=== PATIENT | male | born 1930 | race Caucasian/White ===

== ENCOUNTER 2016-12-09 10:19 | Inpatient (IN) | payer MEDICARE ==
[2016-12-09] MEDS ORDERED: ACETAMINOPHEN 325 MG TABLET PO ONE (10:24)
--- NOTE | 2016-12-09 10:30 | ER Document Report ---
ED Respiratory Problem - General Stated Complaint: DIFFICULTY BREATHING Time Seen by Provider: 12/09/16 10:23 Mode of Arrival: Stretcher Information source: Patient, Emergency Med Personnel - HPI Patient complains to provider of: Cough, Short of breath Onset: This morning Duration: Worse/persistent Context: Hx COPD, Recent surgery Short of Breath: Severe Chest pain/discomfort: Tightness Cough: Productive Sputum amount: Small Sputum color: Yellow Sputum consistency: Mucoid Associated symptoms: Congestion, Cough, Difficulty breathing, Fever, Short of breath, Wheezing Similar symptoms previously: Yes Recently seen / treated by doctor: Yes Notes: Patient is an 86-year-old male presenting to the emergency room via EMS for shortness of breath with fever and chills that started this morning, patient had a PEG tube placed at [facility] last week, he has been doing well since, he has a history of COPD, his cough is wet but nonproductive, when EMS arrived his pulse ox was in the mid 80 range, and he is on 4L oxygen 24/7 at home - Related Data Allergies/Adverse Reactions: No Known Allergies Allergy (Unverified 12/09/16 11:39) Past Medical History - General Information source: Patient - Social History Smoking Status: Unknown if Ever Smoked Family History: Reviewed & Not Pertinent Review of Systems - Review of Systems Constitutional: Fever EENT: No symptoms reported Cardiovascular: No symptoms reported Respiratory: See HPI Gastrointestinal: No symptoms reported Genitourinary: No symptoms reported Male Genitourinary: No symptoms reported Musculoskeletal: No symptoms reported Skin: No symptoms reported Hematologic/Lymphatic: No symptoms reported Neurological/Psychological: No symptoms reported -: Yes All other systems reviewed and negative Physical Exam - Vital signs Vitals: Resp BP Pulse Ox 29 H 131/73 H 93 12/09/16 11:02 12/09/16 11:02 12/09/16 11:02 Interpretation: Tachycardic, Tachypneic - General General appearance: Alert In distress: Mild - HEENT Head: Normocephalic, Atraumatic Eyes: Normal Conjunctiva: Normal Extraocular movements intact: Yes Eyelashes: Normal Pupils: PERRL Mucous membranes: Dry - Respiratory Respiratory status: Respiratory distress, Labored, Tachypnea Chest status: Nontender Breath sounds: Nonproductive cough, Rhonchi Chest palpation: Normal - Cardiovascular Rhythm: Regular Heart sounds: Normal auscultation Murmur: No - Abdominal Inspection: Other - Recently placed PEG tube in place Distension: No distension Bowel sounds: Normal Tenderness: Nontender Organomegaly: No organomegaly - Back Back: Normal, Nontender - Extremities General upper extremity: Normal inspection, Nontender, Normal color, Normal ROM , Normal temperature General lower extremity: Normal inspection, Nontender, Normal color, Normal ROM , Normal temperature, Normal weight bearing. No: Gilles's sign - Neurological Neuro grossly intact: Yes Cognition: Normal Orientation: AAOx4 Gilbert Coma Scale Eye Opening: Spontaneous Onel Coma Scale Verbal: Oriented Onel Coma Scale Motor: Obeys Commands Onel Coma Scale Total: 15 Speech: Normal Motor strength normal: LUE, RUE, LLE, RLE Sensory: Normal - Psychological Associated symptoms: Normal affect, Normal mood - Skin Skin Temperature: Warm Skin Moisture: Dry Skin Color: Normal Course - Re-evaluation Re-evalutation: 12/09/16 12:11 Patient doing much better at this point time, nasal cannula it was reduced to 2- 1/2 L, he seems to be tolerating this well, he still is attempting to cough up some phlegm, chest x-ray is consistent with bibasilar opacities/pneumonia, he will be started on antibiotics, he was discussed with the hospitalist service who agrees to admit for further evaluation and treatment - Vital Signs Vital signs: Temp Pulse Resp BP Pulse Ox 101.9 F H 29 H 131/73 H 93 12/09/16 11:15 12/09/16 11:02 12/09/16 11:02 12/09/16 11:02 - Laboratory Result Diagrams: 12/09/16 10:45 12/09/16 10:45 Laboratory results interpreted by me: 12/09/16 12/09/16 12/09/16 10:38 10:45 10:45 Hgb 13.1 L RDW 14.2 H Band Neutrophils % 10 H Lymphocytes % (Manual) 3 L Abs Lymphs (Manual) 0.2 L VBG HCO3 Sodium 136.7 L Chloride 95 L Est GFR (Non-Af Amer) 59 L Glucose 128 H POC Glucose 130 H Lactic Acid AST 11 L ALT 15 L 12/09/16 12/09/16 10:45 10:45 Hgb RDW Band Neutrophils % Lymphocytes % (Manual) Abs Lymphs (Manual) VBG HCO3 32.3 H Sodium Chloride Est GFR (Non-Af Amer) Glucose POC Glucose Lactic Acid 2.3 H AST ALT - Diagnostic Test Radiology reviewed: Image reviewed, Reports reviewed - EKG Interpretation by Me EKG shows normal: Sinus rhythm Rate: Tachycardia [place]/QRS: LAHB/LAFB Discharge - Discharge Clinical Impression: COPD exacerbation Pneumonia Qualifiers: Pneumonia type: due to unspecified organism Laterality: bilateral Lung location : lower lobe of lung Qualified Code(s): J18.9 - Pneumonia, unspecified organism Condition: Fair Disposition: ADMITTED INPATIENT Admitting Provider: Hospitalist Unit Admitted: IMCU
[2016-12-09] MEDS ORDERED: IPRATROPIUM/ALBUTEROL 0.5-2.5 MG/3 ML AMPUL NEB ONE (10:36)
[2016-12-09] MEDS ORDERED: ALBUTEROL SULFATE 0.083% NEB 2.5 MG/3 ML AMPUL NEB ONE (10:36)
[2016-12-09 11:04] LABS: VENOUS BLOOD BASE EXCESS 5.6 mmol/L; VENOUS BLOOD HCO3 32.3 mmol/L (20-32); VENOUS BLOOD PCO2 55.4 mmHg (35-63); VENOUS BLOOD PH 7.38 (7.30-7.42)
[2016-12-09] MEDS ORDERED: ACETAMINOPHEN 650 MG SUPP.RECT PR ONE (11:06)
[2016-12-09 11:08] LABS: PROTHROMBIN TIME 12.6 SEC (11.4-15.4)
[2016-12-09 11:15] LABS: ALANINE AMINOTRANSFERASE 15 U/L (21-72); ALBUMIN 4.2 g/dL (3.5-5.0); ALKALINE PHOSPHATASE 81 U/L (38-126); ANION GAP 14 (5-19); ASPARTATE AMINO TRANSFERASE 11 U/L (17-59); BILIRUBIN,DIRECT 0.4 mg/dL (0.0-0.4); BILIRUBIN,TOTAL 0.9 mg/dL (0.2-1.3); BLOOD UREA NITROGEN 20 mg/dL (7-20); CALCIUM 9.8 mg/dL (8.4-10.2); CARBON DIOXIDE 28 mmol/L (22-30); CHLORIDE 95 mmol/L (98-107); CREATININE RESULT 1.18 mg/dL (0.52-1.25); GLUCOSE 128 mg/dL (75-110); POTASSIUM 4.4 mmol/L (3.6-5.0); SODIUM 136.7 mmol/L (137-145); TOTAL PROTEIN 6.6 g/dL (6.3-8.2)
[2016-12-09 11:39] LABS: HEMATOCRIT 39.2 % (37.9-51.0); HEMOGLOBIN 13.1 g/dL (13.5-17.0); HGB HCT DIFFERENCE 0.1; MEAN CORPUSCULAR HEMOGLOBIN 29.3 pg (27.0-33.4); MEAN CORPUSCULAR HGB CONC 33.4 g/dL (32.0-36.0); MEAN CORPUSCULAR VOLUME 88 fl (80-97); RED BLOOD COUNT 4.48 10^6/uL (4.35-5.55); RED CELL DISTRIBUTION WIDTH 14.2 % (11.5-14.0); WHITE BLOOD COUNT 7.4 10^3/uL (4.0-10.5)
[2016-12-09 11:43] LABS: BAND NEUTROPHILS % (MANUAL) 10 % (3-5); BASOPHILS % (MANUAL) 1 % (0-2); EOSINOPHILS % (MANUAL) 1 % (0-6); LYMPHOCYTES % (MANUAL) 3 % (13-45); TOTAL CELLS COUNTED 100
[2016-12-09 11:45] LABS: HYPOCHROMASIA SLIGHT; OVALOCYTES SLIGHT; PLATELET CLUMPS PRESENT; POIKILOCYTOSIS SLIGHT
[2016-12-09 11:55] LABS: APPEARANCE,URINE CLEAR; BILIRUBIN,URINE NEGATIVE (NEGATIVE); GLUCOSE, URINE NEGATIVE (NEGATIVE); KETONES,URINE NEGATIVE (NEGATIVE); LEUKOCYTE ESTERASE,URINE NEGATIVE (NEGATIVE); NITRITE,URINE NEGATIVE (NEGATIVE); PROTEIN,URINE NEGATIVE (NEGATIVE); URINE SPECIFIC GRAVITY 1.004; UROBILINOGEN,URINE NEGATIVE mg/dL (<2.0)
--- NOTE | 2016-12-09 12:00 | RADIOLOGY REPORT (SQ) ---
EXAM DESCRIPTION: ACUTE ABDOMEN SERIES COMPLETED DATE/TIME: 12/09/2016 11:51 am REASON FOR STUDY: recent PEG COMPARISON: None. NUMBER OF VIEWS: Three views. TECHNIQUE: Frontal chest, supine abdomen and upright/decubitus abdomen radiographic images acquired. LIMITATIONS: None. FINDINGS: CHEST: Minimal basilar opacities. No pneumothorax. FREE AIR: None. No abnormal gas collections. BOWEL GAS PATTERN: Nonobstructive pattern. No dilated loops or air fluid levels. CALCIFICATIONS: No suspicious calcifications. HARDWARE: None in the abdomen. SOFT TISSUES: No gross mass or suggestion of organomegaly. BONES: No acute fracture. No worrisome bone lesions. OTHER: No other significant finding. IMPRESSION: NO RADIOGRAPHIC EVIDENCE FOR ACUTE ABDOMINAL DISEASE. Minimal basilar opacities in the lungs. TECHNICAL DOCUMENTATION: JOB ID: [id number] [employer]- All Rights Reserved
[2016-12-09] MEDS ORDERED: CEFTRIAXONE INJ 1000 MG VIAL IV ONE (12:09)
[2016-12-09] MEDS ORDERED: ONDANSETRON 4 MG TAB.RAPDIS PO PRN (12:39)
--- NOTE | 2016-12-09 14:33 | RADIOLOGY REPORT (SQ) ---
EXAM DESCRIPTION: CT CHEST WITHOUT COMPLETED DATE/TIME: 12/09/2016 1:37 pm REASON FOR STUDY: Aspiration Pneumonia COMPARISON: None. TECHNIQUE: CT scan performed of the chest without intravenous contrast. Images reviewed with lung, soft tissue and bone windows. Reconstructed coronal and sagittal MPR images reviewed. All images st ored on PACS. All CT scanners at this facility use dose modulation, iterative reconstruction, and/or weight based d osing when appropriate to reduce radiation dose to as low as reasonably achievable (ALARA). [facility]: Dose Right [facility]: CareDose [facility]: Dose Right [facility]: Teradose 4D [facility]: [employer] RADIATION DOSE: Up-to-date CT equipment and radiation dose reduction techniques were employed. CTDIv ol: 8.8 mGy. DLP: 374 mGy-cm. mGy. LIMITATIONS: No technical limitations. FINDINGS: LUNGS AND PLEURA: Centrilobular emphysema. Pleural thickening along the left major fissur e. Subsegmental airspace disease associated with honeycombing in the left lower lobe. No evidence o f cavitation. No effusions. HILAR AND MEDIASTINAL STRUCTURES: No identified masses or abnormal nodes. No obvious aneurysm. HEART AND VASCULAR STRUCTURES: No aneurysm. No pericardial effusion. UPPER ABDOMEN: Hiatal hernia. THYROID AND OTHER SOFT TISSUES: No masses. No adenopathy. BONES: No significant finding. HARDWARE: None in the chest. OTHER: No other significant findings. IMPRESSION: COPD. Pulmonary fibrosis with superimposed infection or aspiration left lower lobe. TECHNICAL DOCUMENTATION: JOB ID: [id number] Quality ID # [id number]: Final reports with documentation of one or more dose reduction techniques (e.g., Au tomated exposure control, adjustment of the mA and/or kV according to patient size, use of iterative reconstruction technique) 2010 [employer]- All Rights Reserved
[2016-12-09] MEDS ORDERED: NORMAL SALINE 1000 ML 1,000 ML IV ONE (14:57)
--- NOTE | 2016-12-09 15:05 | PDOC H&P ---
History of Present Illness Admission Date/PCP: 12/09/16 12:21 Patient complains of: Shortness of Breath History of Present Illness: RHIANNA PRATER is a 86 year old male presents with shortness of breath. Pt states that he receives PEG tube feeds and last night noted that he was belching and coughing. Pt states that he could taste the liquid supplement last night. Pt states that his last feed was at 8 pm and he went to bed at 11pm. Pt states that he sleeps with one pillow at night. Pt states that he woke up at 4-430 am short of breath. Pt states that he has been having hard time breathing. states that he had his PEG tube placed last Saturday. ER states that pt was sating in the Low 80s on 4 liters. The ER doctor gave breathing treatment and rocephin. At time of my encounter to was on 2 liters nasal canula. Past Medical History Pulmonary Medical History: Reports: Chronic Obstructive Pulmonary Disease (COPD) GI Medical History: Reports: Other GI History Note: Dysphagia Past Surgical History Past Surgical History: Reports: Cholecystectomy, Other - PEG Tube placement. Social History Smoking Status: Former Smoker - Advance Directive Resuscitation Status: Full Code Family History Family History: Reviewed & Not Pertinent Parental Family History Reviewed: Yes Children Family History Reviewed: Yes Sibling(s) Family History Reviewed.: Yes Medication/Allergy Home Medications: Albuterol Sulfate [Ventolin 0.083% Neb 2.5 mg/3 ml Ampul] 1 vial NEB RTQ12 12/09 Albuterol Sulfate [Ventolin Hfa] 2 puff IH ASDIR PRN 12/09/16 Fluticasone/Vilanterol [Breo Ellipta 100-25 Mcg INH] 1 puff IH QHS 12/09/16 Glycopyrrolate [Robinul Forte 1 Mg Tablet] 1 mg PO BID 12/09/16 Guaifenesin [Mucinex] 600 mg PO QHS 12/09/16 Levocetirizine Dihydrochloride [Xyzal] 5 mg PO DAILY 12/09/16 Pantoprazole Sodium [Protonix] 40 mg PO DAILY 12/09/16 Sertraline HCl [Zoloft 50 mg Tablet] 50 mg PO DAILY 12/09/16 Tiotropium [place] [Spiriva Handihaler 5 Cap/Kit (18 Mcg/Cap)] 1 cap IH DAILY Allergies/Adverse Reactions: No Known Allergies Allergy (Unverified 12/09/16 11:39) Review of Systems Constitutional: ABSENT: chills, fever(s), headache(s), weight gain, weight loss Eyes: ABSENT: visual disturbances Ears: ABSENT: hearing changes Cardiovascular: ABSENT: chest pain, dyspnea on exertion, edema, orthropnea, palpitations Respiratory: PRESENT: cough, dyspnea Gastrointestinal: ABSENT: abdominal pain, constipation, diarrhea, hematemesis, hematochezia, nausea, vomiting Musculoskeletal: ABSENT: joint swelling Integumentary: ABSENT: rash, wounds Neurological: ABSENT: abnormal gait, abnormal speech, confusion, dizziness, focal weakness, syncope Psychiatric: ABSENT: anxiety, depression, homidical ideation, suicidal ideation Endocrine: ABSENT: cold intolerance, heat intolerance, polydipsia, polyuria Hematologic/Lymphatic: ABSENT: easy bleeding, easy bruising Physical Exam Vital Signs: Temp Pulse Resp BP Pulse Ox 97.7 F 86 22 H 103/49 L 97 12/09/16 13:44 12/09/16 13:44 12/09/16 13:44 12/09/16 13:44 12/09/16 13:44 General appearance: PRESENT: mild distress, well-developed, well-nourished Head exam: PRESENT: atraumatic, normocephalic Eye exam: PRESENT: conjunctiva pink, EOMI Ear exam: PRESENT: normal external ear exam Mouth exam: PRESENT: moist, tongue midline Neck exam: ABSENT: carotid bruit, JVD, lymphadenopathy, thyromegaly Respiratory exam: PRESENT: accessory muscle use, prolonged expiratory phas - No wheezing Cardiovascular exam: PRESENT: RRR. ABSENT: diastolic murmur, rubs, systolic murmur Pulses: PRESENT: normal dorsalis pedis pul Vascular exam: PRESENT: normal capillary refill GI/Abdominal exam: PRESENT: normal bowel sounds, soft. ABSENT: distended, guarding, mass, organolmegaly, rebound, tenderness Rectal exam: PRESENT: deferred Extremities exam: PRESENT: full ROM. ABSENT: calf tenderness, clubbing, pedal edema Musculoskeletal exam: PRESENT: full ROM, normal inspection Neurological exam: PRESENT: alert, awake, oriented to person, oriented to place , oriented to time, oriented to situation, CN II-XII grossly intact. ABSENT: motor sensory deficit Psychiatric exam: PRESENT: appropriate affect, normal mood. ABSENT: homicidal ideation, suicidal ideation Skin exam: PRESENT: dry, intact, warm. ABSENT: cyanosis, rash Results Impressions: Acute Abdomen Series 12/09/16 10:35 IMPRESSION: NO RADIOGRAPHIC EVIDENCE FOR ACUTE ABDOMINAL DISEASE. Minimal basilar opacities in the lungs. Assessment & Plan - Diagnosis (1) Acute respiratory failure Qualifiers: Respiratory failure complication: hypoxia Qualified Code(s): J96.01 - Acute respiratory failure with hypoxia Is this a current diagnosis for this admission?: Yes Plan: Most likely secondary to GERD and mild acute exacerbation of COPD: Patient was given breathing treatments in the emergency room. Patient's O2 requirements went from 4 L down to 2 L. We will continue breathing treatments and place patient on steroids. Will obtain CT of chest to evaluate for infiltrate. Feel that most likely this is representing chemical pneumonitis from GERD and aspiration. (2) Chemical pneumonitis Is this a current diagnosis for this admission?: Yes Plan: Patient reports experiencing belching and the taste of supplemental drink and mouth. In addition patient states that he sleeps with one pillow feel that patient's presentation is consistent with chemical pneumonitis due to aspiration and GERD. Will place patient on steroids and give breathing treatments. Patient has empirically been placed on antibiotics until patient can be observed more closely. (3) COPD exacerbation Is this a current diagnosis for this admission?: Yes Plan: Mild acute exacerbation of COPD secondary to GERD and aspiration/chemical pneumonitis: We will continue breathing treatments, steroids, and antibiotics. Recommend repeating chest x-ray in 72 hours to make sure there has been no development of infiltrate and also monitor for fever. Patient's exacerbation is most likely secondary to chemical pneumonitis (4) GERD (gastroesophageal reflux disease) Is this a current diagnosis for this admission?: Yes Plan: We will continue PPI. (5) Aspiration pneumonia Qualifiers: Aspiration pneumonia type: unspecified Is this a current diagnosis for this admission?: Yes Plan: CT of chest pending. Feel that patient's presentation is most likely representing chemical pneumonitis however will cover for aspiration pneumonia until further information has been gathered. Family reports the patient was febrile. This is not abnormal with chemical pneumonitis. (6) Dysphagia Qualifiers: Dysphagia type: unspecified Qualified Code(s): R13.10 - Dysphagia, unspecified Is this a current diagnosis for this admission?: Yes Plan: S/P PEG placement: Pt receiving tubefeeds. (7) Dehydration Is this a current diagnosis for this admission?: Yes Plan: Will give 1 liter saline bolus and give 250 cc Free water Flashes Q4. (8) Neurogenic bladder Is this a current diagnosis for this admission?: Yes Plan: Will continue In and out cath. Urine culture ordered. (9) Hypotension Qualifiers: Hypotension type: unspecified hypotension type Qualified Code(s): I95.9 - Hypotension, unspecified Is this a current diagnosis for this admission?: Yes Plan: Family reports that they only give 750 cc Free Water a day. Will give normal saline bolus. Will increase Free Water to 250 Q4 hours. (10) Debility Is this a current diagnosis for this admission?: Yes Plan: PT/OT evaluation and treatment. (11) DVT prophylaxis Is this a current diagnosis for this admission?: Yes Plan: Heparin - Time Time Spent: 30 to 50 Minutes Anticipated discharge: Home - Inpatient Certification Based on my medical assessment, after consideration of the patient's comorbidities, presenting symptoms, or acuity I expect that the services needed warrant INPATIENT care.: Yes I certify that my determination is in accordance with my understanding of Medicare's requirements for reasonable and necessary INPATIENT services [42 CFR 412.3e].: Yes Medical Necessity: Significant Comorbidiites Make Outpatient Treatment Too Risky
[2016-12-09] MEDS: PIPERACILLIN SODIUM/TAZOBACTAM 3.375 GM in NORMAL SALINE 100 ML IV SCH ×2 (15:33→22:33)
[2016-12-09] MEDS: GLYCOPYRROLATE 1 MG TABLET PO SCH (17:00)
[2016-12-09] MEDS: IPRATROPIUM/ALBUTEROL 0.5-2.5 MG/3 ML AMPUL NEB SCH ×2 (17:00→23:53)
[2016-12-09] MEDS: LANSOPRAZOLE 15 MG TAB.RAP.DR PO SCH (17:03)
--- NOTE | 2016-12-09 21:55 | EKG REPORT ---
SEVERITY:- ABNORMAL ECG - SINUS TACHYCARDIA LEFT ANTERIOR FASCICULAR BLOCK : Confirmed by: Espinoza Mukherjee 09-Dec-2016 21:55:20
[2016-12-09] MEDS ORDERED: (PENDING PHARMACY ID) (Fluticasone/Vilanterol [Breo Ellipta 100-25 Mcg Inh] 1 PUFF) IH SCH (22:00)
[2016-12-09] MEDS ORDERED: GUAIFENESIN 600 MG TABLET.SA PO SCH (22:00)
[2016-12-09] MEDS ORDERED: (PENDING PHARMACY ID) (Guaifenesin [Mucinex] 600 MG) PO SCH (22:00)
[2016-12-09] MEDS: HEPARIN SOD (PORCINE) 5,000 UNIT/ML 1 ML SYRINGE SUBCUT SCH (23:03)
[2016-12-09] MEDS ORDERED: GUAIFENESIN SYRP 200 MG/10 ML UDC PEG PRN (23:13)
[2016-12-10] MEDS: PIPERACILLIN SODIUM/TAZOBACTAM 3.375 GM in NORMAL SALINE 100 ML IV SCH ×4 (03:52→21:32)
[2016-12-10 04:46] LABS: HEMATOCRIT 32.3 % (37.9-51.0); HGB HCT DIFFERENCE 0.1; MEAN CORPUSCULAR HEMOGLOBIN 29.3 pg (27.0-33.4); MEAN CORPUSCULAR HGB CONC 33.4 g/dL (32.0-36.0); MEAN CORPUSCULAR VOLUME 88 fl (80-97); RED BLOOD COUNT 3.69 10^6/uL (4.35-5.55); RED CELL DISTRIBUTION WIDTH 14.3 % (11.5-14.0); WHITE BLOOD COUNT 9.2 10^3/uL (4.0-10.5)
[2016-12-10 04:54] LABS: HEMOGLOBIN 10.8 g/dL (13.5-17.0)
[2016-12-10 05:06] LABS: ALANINE AMINOTRANSFERASE 17 U/L (21-72); ALBUMIN 3.3 g/dL (3.5-5.0); ALKALINE PHOSPHATASE 58 U/L (38-126); ANION GAP 8 (5-19); ASPARTATE AMINO TRANSFERASE 13 U/L (17-59); BILIRUBIN,DIRECT 0.4 mg/dL (0.0-0.4); BILIRUBIN,TOTAL 0.7 mg/dL (0.2-1.3); BLOOD UREA NITROGEN 31 mg/dL (7-20); CALCIUM 9.5 mg/dL (8.4-10.2); CARBON DIOXIDE 29 mmol/L (22-30); CHLORIDE 99 mmol/L (98-107); CREATININE RESULT 1.48 mg/dL (0.52-1.25); GLUCOSE 104 mg/dL (75-110); MAGNESIUM 2.3 mg/dL (1.6-2.3); POTASSIUM 4.1 mmol/L (3.6-5.0); SODIUM 135.5 mmol/L (137-145); TOTAL PROTEIN 5.9 g/dL (6.3-8.2)
[2016-12-10 05:16] LABS: BAND NEUTROPHILS % (MANUAL) 4 % (3-5); BASOPHILS % (MANUAL) 0 % (0-2); EOSINOPHILS % (MANUAL) 0 % (0-6); LYMPHOCYTES % (MANUAL) 7 % (13-45); TOTAL CELLS COUNTED 100
[2016-12-10 05:19] LABS: ANISOCYTOSIS SLIGHT; OVALOCYTES SLIGHT; POIKILOCYTOSIS SLIGHT; TOXIC GRANULATION SLIGHT; TOXIC VACUOLATION PRESENT
[2016-12-10] MEDS: LANSOPRAZOLE 15 MG TAB.RAP.DR PO SCH ×2 (06:33→17:52)
[2016-12-10] MEDS ORDERED: ACETAMINOPHEN 325 MG TABLET PEG PRN (07:39)
[2016-12-10] MEDS ORDERED: BISACODYL 10 MG SUPP.RECT PR ONE (08:00)
[2016-12-10] MEDS: IPRATROPIUM/ALBUTEROL 0.5-2.5 MG/3 ML AMPUL NEB SCH ×3 (08:09→20:03)
[2016-12-10] MEDS: CETIRIZINE 5 MG TABLET PO SCH (10:09)
[2016-12-10] MEDS: GLYCOPYRROLATE 1 MG TABLET PO SCH ×2 (10:09→17:49)
[2016-12-10] MEDS: SERTRALINE HCL 50 MG TABLET PO SCH (10:09)
[2016-12-10] MEDS: HEPARIN SOD (PORCINE) 5,000 UNIT/ML 1 ML SYRINGE SUBCUT SCH ×2 (10:10→17:50)
--- NOTE | 2016-12-10 10:10 | RADIOLOGY REPORT (SQ) ---
EXAM DESCRIPTION: CHEST SINGLE VIEW COMPLETED DATE/TIME: 12/10/2016 8:39 am REASON FOR STUDY: Shortness of breath COMPARISON: 12/09/2016 EXAM PARAMETERS: NUMBER OF VIEWS: One view. TECHNIQUE: Single frontal radiographic view of the chest acquired. RADIATION DOSE: NA LIMITATIONS: None. FINDINGS: LUNGS AND PLEURA: The lungs are somewhat hyperexpanded. The ill-defined infiltrate sugges johnson in the left base on the earlier study is improved. At this time, however, there is the appearanc e of an infiltrate in the medial right base. MEDIASTINUM AND HILAR STRUCTURES: No masses. Contour normal. HEART AND VASCULAR STRUCTURES: Heart normal in size. Normal vasculature. BONES: No acute findings. HARDWARE: None in the chest. OTHER: No other significant finding. IMPRESSION: Improved appearance in the left base with possible new airspace disease in the medial ri ght base. TECHNICAL DOCUMENTATION: JOB ID: [id number]
[2016-12-10] MEDS: TIOTROPIUM BROMIDE DPI 5 CAP/KIT (18 MCG/CAP) IH SCH (10:18)
[2016-12-10] MEDS: NORMAL SALINE 1000 ML 1,000 ML IV PRN ×2 (12:08→23:50)
[2016-12-10] MEDS ORDERED: MAGNESIUM HYDROXIDE SUSP 30 ML UDCUP PEG ONE (12:30)
[2016-12-10] MEDS ORDERED: HEPARIN SOD (PORCINE) 5,000 UNIT/ML 1 ML SYRINGE SUBCUT SCH (14:00)
[2016-12-10] MEDS ORDERED: ACETAMINOPHEN SOLN 325 MG/10.15 ML UDCUP PEG PRN (15:10)
[2016-12-10] MEDS ORDERED: ONDANSETRON 4 MG TAB.RAPDIS PO PRN (15:30)
[2016-12-10] MEDS: PREDNISONE 20 MG TABLET PO SCH (16:04)
--- NOTE | 2016-12-10 16:24 | PDOC PROGRESS REPORT ---
Subjective Progress Note for:: 12/10/16 Subjective:: Neither patient nor is sure if he had a bowel movement yesterday. None is recorded. Patient is unable to tolerate tube feeds secondary to feeling full. He does report that he is still short of breath. reports that he uses 4 L of oxygen at home. She reports that he is supposed to cath 6 times daily, but really only caths approximately 4 times daily. Patient denies chest pain, abdominal pain, nausea, vomiting, fevers, chills, diarrhea, headache, new onset weakness. Physical Exam Vital Signs: Temp Pulse Resp BP Pulse Ox 98.4 F 69 14 96/50 L 93 12/10/16 08:06 12/10/16 08:09 12/10/16 08:09 12/10/16 08:06 12/10/16 08:09 Intake & Output 12/09/16 12/10/16 12/11/16 06:59 06:59 06:59 Intake Total 2081 Output Total 400 Balance 1681 Weight 84.3 kg Exam: General: awake, alert, oriented to self, situation, place, and answers questions appropriately, mild respiratory distress HEENT: AT/NC, Pupils irregular bilaterally, EOMI, oropharynx is moist, pink, no scleral icterus, no conjunctival injection Neck: No JVD, trachea midline Chest: Prolonged expiratory phase, Rhonchi bilaterally CV: Regular rate and rhythm, normal S1 and S2, no murmur, rub, or gallop Abdomen: Soft, mildly tender to palpation, slightly distended, hypoactive bowel sounds; no rebound, rigidity, or guarding Extremities: No cyanosis, clubbing or edema Neuro: Cranial nerves IV through XII are grossly intact without focal deficits; awake alert and oriented x2 Psych: Normal mood and affect Results Laboratory Results: 12/10/16 04:18 12/10/16 04:18 12/09/16 12/10/16 12/10/16 15:16 04:18 04:18 WBC 9.2 RBC 3.69 L Hgb 10.8 L D Hct 32.3 L MCV 88 MCH 29.3 MCHC 33.4 RDW 14.3 H Plt Count 269 Seg Neutrophils % Not Reportable Lymphocytes % Not Reportable Monocytes % Not Reportable Eosinophils % Not Reportable Basophils % Not Reportable Absolute Neutrophils Not Reportable Absolute Lymphocytes Not Reportable Absolute Monocytes Not Reportable Absolute Eosinophils Not Reportable Absolute Basophils Not Reportable Sodium 135.5 L Potassium 4.1 Chloride 99 Carbon Dioxide 29 Anion Gap 8 BUN 31 H Creatinine 1.48 H Est GFR ( Amer) 55 L Est GFR (Non-Af Amer) 45 L Glucose 104 Lactic Acid 5.3 H Calcium 9.5 Magnesium 2.3 Total Bilirubin 0.7 AST 13 L ALT 17 L Alkaline Phosphatase 58 Total Protein 5.9 L Albumin 3.3 L Impressions: Chest CT 12/09/16 00:00 IMPRESSION: COPD. Pulmonary fibrosis with superimposed infection or aspiration left lower lobe. Acute Abdomen Series 12/09/16 10:35 IMPRESSION: NO RADIOGRAPHIC EVIDENCE FOR ACUTE ABDOMINAL DISEASE. Minimal basilar opacities in the lungs. Chest X-Ray 12/10/16 06:00 IMPRESSION: Improved appearance in the left base with possible new airspace disease in the medial right base. Assessment & Plan - Diagnosis (1) Aspiration pneumonia Qualifiers: Aspiration pneumonia type: due to regurgitated food Laterality: bilateral Lung location: lower lobe of lung Qualified Code(s): J69.0 - Pneumonitis due to inhalation of food and vomit Is this a current diagnosis for this admission?: Yes Plan: Patient currently on Zosyn day #2. Have discussed with his at length that the PEG tube does not reduce his risk for aspiration pneumonia or any recurrent aspirations. Patient appears to be quite constipated and his tube feeds are not clearing. Suspect that patient had aspiration secondary to severe constipation. (2) COPD exacerbation Is this a current diagnosis for this admission?: Yes Plan: Patient on prednisone and increase scheduled nebulized treatments every 6. Pulmonary toileting. (3) Chemical pneumonitis Is this a current diagnosis for this admission?: Yes (4) Debility Is this a current diagnosis for this admission?: Yes Plan: PT to see patient and will have home health (5) Dehydration Is this a current diagnosis for this admission?: Yes Plan: Resume IVF Patient continues to appear dehydrated Unable to tolerate tube feedings at this time (6) Dysphagia Qualifiers: Dysphagia type: unspecified Qualified Code(s): R13.10 - Dysphagia, unspecified Is this a current diagnosis for this admission?: Yes Plan: Pt NPO except for tube feeds (7) GERD (gastroesophageal reflux disease) Qualifiers: Esophagitis presence: esophagitis presence not specified Qualified Code(s) : K21.9 - Gastro-esophageal reflux disease without esophagitis Is this a current diagnosis for this admission?: Yes Plan: Continue PPI Elevate HOB > 30 degrees (8) Neurogenic bladder Is this a current diagnosis for this admission?: Yes Plan: Place patient on finasteride as an outpatient Patient will need to follow with urology. Patient is not fully compliant with self cathing at home due to physical constraints. Patient apparently has a diagnosis of neurogenic bladder, but reports that this is been going on significantly worse since his diagnosis of prostate cancer. Plan to leave robins in place with a leg bag. (9) DVT prophylaxis Is this a current diagnosis for this admission?: Yes Plan: heparin and scd (10) Acute renal failure Qualifiers: Acute renal failure type: unspecified Qualified Code(s): N17.9 - Acute kidney failure, unspecified Is this a current diagnosis for this admission?: Yes Plan: likely 2/2 dehydration resume IVF (11) Acute and chronic respiratory failure Qualifiers: Respiratory failure complication: hypoxia Qualified Code(s): J96.21 - Acute and chronic respiratory failure with hypoxia Is this a current diagnosis for this admission?: Yes Plan: Patient is chronically on oxygen at home, but requiring more here. - Time Time Spent with patient: 25-34 minutes Medications reviewed and adjusted accordingly: Yes Anticipated discharge: Home Within: within 48 hours - Inpatient Certification Based on my medical assessment, after consideration of the patient's comorbidities, presenting symptoms, or acuity I expect that the services needed warrant INPATIENT care.: Yes I certify that my determination is in accordance with my understanding of Medicare's requirements for reasonable and necessary INPATIENT services [42 CFR 412.3e].: Yes Medical Necessity: Need For IV Fluids, Need for IV Antibiotics Post Hospital Care: D/C Griddle Cook Documentation
[2016-12-10] MEDS: Fluticasone/Vilanterol [Breo Ellipta 100-25 Mcg Inh IH SCH (23:46)
[2016-12-11] MEDS: IPRATROPIUM/ALBUTEROL 0.5-2.5 MG/3 ML AMPUL NEB SCH ×4 (02:24→19:54)
[2016-12-11] MEDS: CETIRIZINE 5 MG TABLET PO SCH (10:30)
[2016-12-11] MEDS: GLYCOPYRROLATE 1 MG TABLET PO SCH ×2 (10:30→18:00)
[2016-12-11] MEDS: SERTRALINE HCL 50 MG TABLET PO SCH (10:30)
[2016-12-11] MEDS: PIPERACILLIN SODIUM/TAZOBACTAM 3.375 GM in NORMAL SALINE 100 ML IV SCH ×3 (10:30→21:28)
[2016-12-11] MEDS: HEPARIN SOD (PORCINE) 5,000 UNIT/ML 1 ML SYRINGE SUBCUT SCH ×2 (10:30→18:00)
[2016-12-11] MEDS: TIOTROPIUM BROMIDE DPI 5 CAP/KIT (18 MCG/CAP) IH SCH (10:31)
[2016-12-11] MEDS: BISACODYL 10 MG SUPP.RECT PR PRN (10:32)
[2016-12-11 12:19] LABS: HEMATOCRIT 33.6 % (37.9-51.0); HGB HCT DIFFERENCE -0.6; MEAN CORPUSCULAR HEMOGLOBIN 28.9 pg (27.0-33.4); MEAN CORPUSCULAR HGB CONC 32.6 g/dL (32.0-36.0); MEAN CORPUSCULAR VOLUME 88 fl (80-97); RED BLOOD COUNT 3.81 10^6/uL (4.35-5.55); RED CELL DISTRIBUTION WIDTH 14.5 % (11.5-14.0); WHITE BLOOD COUNT 8.2 10^3/uL (4.0-10.5)
[2016-12-11 12:27] LABS: ANION GAP 8 (5-19); BLOOD UREA NITROGEN 21 mg/dL (7-20); CALCIUM 9.3 mg/dL (8.4-10.2); CARBON DIOXIDE 25 mmol/L (22-30); CHLORIDE 104 mmol/L (98-107); CREATININE RESULT 1.12 mg/dL (0.52-1.25); GLUCOSE 94 mg/dL (75-110); POTASSIUM 4.4 mmol/L (3.6-5.0)
[2016-12-11 12:53] LABS: BAND NEUTROPHILS % (MANUAL) 1 % (3-5); BASOPHILS % (MANUAL) 0 % (0-2); EOSINOPHILS % (MANUAL) 0 % (0-6); LYMPHOCYTES % (MANUAL) 4 % (13-45); TOTAL CELLS COUNTED 100
[2016-12-11 12:54] LABS: ANISOCYTOSIS SLIGHT; BURR CELLS SLIGHT; OVALOCYTES 1+; POIKILOCYTOSIS 1+
[2016-12-11] MEDS: PREDNISONE 20 MG TABLET PO SCH (14:00)
--- NOTE | 2016-12-11 16:44 | PDOC PROGRESS REPORT ---
Subjective Progress Note for:: 12/11/16 Subjective:: Patient has still not had a bowel movement. He reports that his breathing is easier. Pt reports a feeling of fullness in his abdomen. Nursing reports patient has had less than 15mL of residuals. Patient denies chest pain, abdominal pain, nausea, vomiting, fevers, chills, diarrhea, headache, new onset weakness. Physical Exam Vital Signs: Temp Pulse Resp BP Pulse Ox 97.9 F 78 18 123/59 L 99 12/11/16 12:44 12/11/16 13:52 12/11/16 13:52 12/11/16 12:44 12/11/16 13:52 Intake & Output 12/10/16 12/11/16 12/12/16 06:59 06:59 06:59 Intake Total 2081 3005 Output Total 400 975 Balance 1681 2030 Weight 84.3 kg 85.2 kg Exam: General: awake, alert, oriented to self, situation, place, and answers questions appropriately, NAD HEENT: AT/NC, Pupils irregular bilaterally, EOMI, oropharynx is moist, pink, no scleral icterus, no conjunctival injection Neck: No JVD, trachea midline Chest: Prolonged expiratory phase, CTAB CV: Regular rate and rhythm, normal S1 and S2, no murmur, rub, or gallop Abdomen: Soft, mildly tender to palpation, slightly distended, active bowel sounds; no rebound, rigidity, or guarding Extremities: No cyanosis, clubbing or edema Neuro: Cranial nerves IV through XII are grossly intact without focal deficits; awake alert and oriented x2 Psych: Normal mood and affect Results Laboratory Results: 12/11/16 12:03 12/11/16 12:03 12/11/16 12/11/16 12:03 12:03 WBC 8.2 RBC 3.81 L Hgb 11.0 L Hct 33.6 L MCV 88 MCH 28.9 MCHC 32.6 RDW 14.5 H Plt Count 293 Seg Neutrophils % Not Reportable Lymphocytes % Not Reportable Monocytes % Not Reportable Eosinophils % Not Reportable Basophils % Not Reportable Absolute Neutrophils Not Reportable Absolute Lymphocytes Not Reportable Absolute Monocytes Not Reportable Absolute Eosinophils Not Reportable Absolute Basophils Not Reportable Sodium 137.0 Potassium 4.4 Chloride 104 Carbon Dioxide 25 Anion Gap 8 BUN 21 H Creatinine 1.12 Est GFR ( Amer) > 60 Est GFR (Non-Af Amer) > 60 Glucose 94 Calcium 9.3 Impressions: Chest CT 12/09/16 00:00 IMPRESSION: COPD. Pulmonary fibrosis with superimposed infection or aspiration left lower lobe. Acute Abdomen Series 12/09/16 10:35 IMPRESSION: NO RADIOGRAPHIC EVIDENCE FOR ACUTE ABDOMINAL DISEASE. Minimal basilar opacities in the lungs. Chest X-Ray 12/10/16 06:00 IMPRESSION: Improved appearance in the left base with possible new airspace disease in the medial right base. Assessment & Plan - Diagnosis (1) Aspiration pneumonia Qualifiers: Aspiration pneumonia type: due to regurgitated food Laterality: bilateral Lung location: lower lobe of lung Qualified Code(s): J69.0 - Pneumonitis due to inhalation of food and vomit Is this a current diagnosis for this admission?: Yes Plan: Patient currently on Zosyn day #2 Aggressive pulmonary toileting Have discussed with his at length that the PEG tube does not reduce his risk for aspiration pneumonia or any recurrent aspirations. Patient appears to be quite constipated and his tube feeds are not clearing. Suspect that patient had aspiration secondary to severe constipation. (2) COPD exacerbation Is this a current diagnosis for this admission?: Yes Plan: Patient on prednisone and increase scheduled nebulized treatments every 6. Pulmonary toileting. Improving and plan to decrease steroids tomorrow if doing this well. (3) Chemical pneumonitis Is this a current diagnosis for this admission?: Yes (4) Debility Is this a current diagnosis for this admission?: Yes Plan: PT to see patient and will have home health (5) Dehydration Is this a current diagnosis for this admission?: Yes Plan: Continue IVF Improving but not yet back to baseline Unable to tolerate full tube feedings at this time (6) Dysphagia Qualifiers: Dysphagia type: unspecified Qualified Code(s): R13.10 - Dysphagia, unspecified Is this a current diagnosis for this admission?: Yes (7) GERD (gastroesophageal reflux disease) Qualifiers: Esophagitis presence: esophagitis presence not specified Qualified Code(s) : K21.9 - Gastro-esophageal reflux disease without esophagitis Is this a current diagnosis for this admission?: Yes (8) Neurogenic bladder Is this a current diagnosis for this admission?: Yes Plan: Place patient on finasteride as an outpatient Patient will need to follow with urology. Patient is not fully compliant with self cathing at home due to physical constraints. Patient apparently has a diagnosis of neurogenic bladder, but reports that this is been going on significantly worse since his diagnosis of prostate cancer. Plan to leave robins in place with a leg bag. (9) DVT prophylaxis Is this a current diagnosis for this admission?: Yes (10) Acute renal failure Qualifiers: Acute renal failure type: unspecified Qualified Code(s): N17.9 - Acute kidney failure, unspecified Is this a current diagnosis for this admission?: Yes Plan: likely 2/2 dehydration Improving but not yet back to baseline (11) Acute and chronic respiratory failure Qualifiers: Respiratory failure complication: hypoxia Qualified Code(s): J96.21 - Acute and chronic respiratory failure with hypoxia Is this a current diagnosis for this admission?: Yes Plan: Patient is chronically on oxygen at home, but requiring more here. Concern for possible underlying congestive heart failure with no previous diagnosis. Will obtain echo - Time Time Spent with patient: 35 or more minutes Medications reviewed and adjusted accordingly: Yes Anticipated discharge: Home with Homehealth Within: within 72 hours - Inpatient Certification Based on my medical assessment, after consideration of the patient's comorbidities, presenting symptoms, or acuity I expect that the services needed warrant INPATIENT care.: Yes I certify that my determination is in accordance with my understanding of Medicare's requirements for reasonable and necessary INPATIENT services [42 CFR 412.3e].: Yes Medical Necessity: Need For IV Fluids, Need For Continuous Telemetry Monitoring , Need for Nebulizer Therapy and Monitoring of Response Post Hospital Care: 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
[2016-12-11] MEDS: LANSOPRAZOLE 15 MG TAB.RAP.DR PO SCH (16:57)
--- NOTE | 2016-12-11 17:20 | XCELERA REPORT ---
[address] [address] Transthoracic Echocardiogram Report Name: RHIANNA PRATER Age: 86 yrs Gender: Male : 1930 Patient Status: Inpatient Patient Location: [address] [place] [address] Study Date: 12/11/2016 01:21 PM Height: 70 in Weight: 187 lb BSA: 2.0 m2 Procedure: A complete two-dimensional transthoracic echocardiogram was performed (2D, M-mode, spectral and color flow Doppler). The study was technically difficult with many images being suboptimal in quality. Reason For Study: chf Ordering Physician: LIDA HOOVER Performed By: Leny Fish Interpretation Summary The left ventricular ejection fraction is normal. Doppler measurements suggest pseudonormalized left ventricular relaxation, which is associated with grade II/IV or mild to moderate diastolic dysfunction There is borderline concentric left ventricular hypertrophy. The left ventricle is grossly normal size. Wall motion cannot be accurately commented on, but no definite regional wall motion abnormalities noted. The right ventricle is mildly dilated. The right atrium is mildly dilated. The left atrial size is normal. There is a mild amount of mitral regurgitation There is no mitral valve stenosis. There is mild aortic stenosis There is a peak gradient of 25-30 mm of Hg. There is a trace amount of aortic regurgitation There is a trace to mild amount of tricuspid regurgitation There is mild pulmonary hypertension by echo Right ventricular systolic pressure is estimated to be elevated at 30- 40mmHg. The aortic root is not well visualized but is probably normal size. The inferior vena cava was not visualized Minimal pericardial effusion. MMode/2D Measurements & Calculations RVDd: 3.2 cm LVIDd: 5.0 cm FS: 21.3 % Ao root diam: 2.7 cm IVSd: 0.86 cm LVIDs: 3.9 cm EDV(Teich): 118.3 ml LVPWd: 0.91 cmESV(Teich): 67.2 ml Ao root area: 5.7 cm2 EF(Teich): 43.1 % LVOT diam: 2.0 cm LVOT area: 3.0 cm2 Doppler Measurements & Calculations MV E max selvin: MV dec slope: Ao V2 max: LV V1 max P.3 cm/sec 406.5 cm/sec2 247.0 cm/sec 3.9 mmHg MV A max selvin: MV dec time: Ao max PG: LV V1 mean P.2 cm/sec 0.22 sec 24.4 mmHg 1.6 mmHg MV E/A: 1.3 Ao V2 mean: LV V1 max: 153.9 cm/sec 98.4 cm/sec Ao mean PG: LV V1 mean: 11.0 mmHg 56.8 cm/sec Ao V2 VTI: 52.7 cm LV V1 VTI: YANNA(I,D): 1.4 cm2 24.4 cm YANNA(V,D): 1.2 cm2 SV(LVOT): 73.8 ml PA V2 max: TR max selvin: 109.5 cm/sec 259.6 cm/sec PA max P.8 mmHg TR max P.4 mmHg Left Ventricle The left ventricle is grossly normal size. There is borderline concentric left ventricular hypertrophy. The left ventricular ejection fraction is normal. Doppler measurements suggest pseudonormalized left ventricular relaxation, which is associated with grade II/IV or mild to moderate diastolic dysfunction. Wall motion cannot be accurately commented on, but no definite regional wall motion abnormalities noted. Right Ventricle The right ventricle is mildly dilated. There is normal right ventricular wall thickness. The right ventricular systolic function is normal. Atria The right atrium is mildly dilated. The left atrial size is normal. Interarterial septum not well visualized and not well dopplered. Cannot comment on ASD/PFO presence. Mitral Valve The mitral valve is grossly normal. There is no mitral valve stenosis. There is a mild amount of mitral regurgitation. Aortic Valve The aortic valve is moderately calcified. There is mild aortic stenosis. There is a peak gradient of 25-30 mm of Hg. There is a trace amount of aortic regurgitation. Tricuspid Valve The tricuspid valve is not well visualized secondary to technical limitations. There is no tricuspid stenosis. There is a trace to mild amount of tricuspid regurgitation. There is mild pulmonary hypertension by echo. Right ventricular systolic pressure is estimated to be elevated at 30-40mmHg. Pulmonic Valve The pulmonic valve is not well visualized. Great Vessels The aortic root is not well visualized but is probably normal size. The inferior vena cava was not visualized. Effusions Minimal pericardial effusion. : LIDA HOOVER > Espinoza Mukherjee
[2016-12-11] MEDS ORDERED: FUROSEMIDE INJ/PF 20 MG/2 ML SDV IV ONE (18:13)
[2016-12-11] MEDS: Fluticasone/Vilanterol [Breo Ellipta 100-25 Mcg Inh IH SCH (21:29)
[2016-12-12] MEDS: PIPERACILLIN SODIUM/TAZOBACTAM 3.375 GM in NORMAL SALINE 100 ML IV SCH ×2 (02:33→09:22)
[2016-12-12] MEDS: HEPARIN SOD (PORCINE) 5,000 UNIT/ML 1 ML SYRINGE SUBCUT SCH ×3 (02:33→18:15)
[2016-12-12] MEDS: IPRATROPIUM/ALBUTEROL 0.5-2.5 MG/3 ML AMPUL NEB SCH ×4 (02:38→20:12)
[2016-12-12] MEDS: LANSOPRAZOLE 15 MG TAB.RAP.DR PO SCH ×2 (05:36→18:15)
[2016-12-12 06:30] LABS: ANION GAP 10 (5-19); BLOOD UREA NITROGEN 20 mg/dL (7-20); CALCIUM 9.5 mg/dL (8.4-10.2); CARBON DIOXIDE 25 mmol/L (22-30); CHLORIDE 103 mmol/L (98-107); CREATININE RESULT 1.11 mg/dL (0.52-1.25); GLUCOSE 136 mg/dL (75-110); MAGNESIUM 2.4 mg/dL (1.6-2.3); POTASSIUM 4.7 mmol/L (3.6-5.0); SODIUM 138.1 mmol/L (137-145)
[2016-12-12 06:39] LABS: HEMATOCRIT 32.1 % (37.9-51.0); HEMOGLOBIN 10.8 g/dL (13.5-17.0); HGB HCT DIFFERENCE 0.3; MEAN CORPUSCULAR HEMOGLOBIN 29.4 pg (27.0-33.4); MEAN CORPUSCULAR HGB CONC 33.7 g/dL (32.0-36.0); MEAN CORPUSCULAR VOLUME 87 fl (80-97); RED BLOOD COUNT 3.68 10^6/uL (4.35-5.55); RED CELL DISTRIBUTION WIDTH 14.5 % (11.5-14.0); WHITE BLOOD COUNT 5.8 10^3/uL (4.0-10.5)
[2016-12-12 07:05] LABS: BASOPHILS % (MANUAL) 0 % (0-2); EOSINOPHILS % (MANUAL) 0 % (0-6); LYMPHOCYTES % (MANUAL) 4 % (13-45); TOTAL CELLS COUNTED 100
[2016-12-12 07:06] LABS: POLYCHROMASIA SLIGHT; TOXIC GRANULATION SLIGHT
[2016-12-12 07:07] LABS: ANISOCYTOSIS SLIGHT; OVALOCYTES SLIGHT; POIKILOCYTOSIS SLIGHT
[2016-12-12] MEDS: CETIRIZINE 5 MG TABLET PO SCH (09:21)
[2016-12-12] MEDS: GLYCOPYRROLATE 1 MG TABLET PO SCH ×2 (09:21→18:15)
[2016-12-12] MEDS: SERTRALINE HCL 50 MG TABLET PO SCH (09:21)
[2016-12-12] MEDS: BISACODYL 10 MG SUPP.RECT PR PRN (09:22)
[2016-12-12] MEDS: TIOTROPIUM BROMIDE DPI 5 CAP/KIT (18 MCG/CAP) IH SCH (09:22)
[2016-12-12] MEDS: LEVOFLOXACIN 500 MG TABLET PEG SCH (12:45)
[2016-12-12] MEDS: PREDNISONE 20 MG TABLET PO SCH (14:04)
[2016-12-12] MEDS: GUAIFENESIN SYRP 200 MG/10 ML UDC PEG SCH ×3 (14:05→21:08)
--- NOTE | 2016-12-12 14:56 | PDOC PROGRESS REPORT ---
Subjective Progress Note for:: 12/12/16 Subjective:: Patient son is present for exam. Patient has had several bowel movement. He reports that his breathing is easier and his abdominal fullness has improved. Nursing reports patient has had less than 30mL of residuals once. Patient denies chest pain, abdominal pain, nausea, vomiting, fevers, chills, diarrhea, headache, new onset weakness. Physical Exam Vital Signs: Temp Pulse Resp BP Pulse Ox 98.0 F 65 18 120/69 96 12/12/16 12:02 12/12/16 14:17 12/12/16 14:17 12/12/16 12:02 12/12/16 14:17 Intake & Output 12/11/16 12/12/16 12/13/16 06:59 06:59 06:59 Intake Total 3005 1752 Output Total 975 2500 Balance 2030 -74 Weight 85.2 kg 83.8 kg Exam: General: awake, alert, oriented to self, situation, place, and answers questions appropriately, NAD HEENT: AT/NC, Pupils irregular bilaterally, EOMI, oropharynx is moist, pink, no scleral icterus, no conjunctival injection Neck: No JVD, trachea midline Chest: Prolonged expiratory phase, CTAB CV: Regular rate and rhythm, normal S1 and S2, no murmur, rub, or gallop Abdomen: Soft, nontender to palpation, non-distended, active bowel sounds; no rebound, rigidity, or guarding Extremities: No cyanosis, clubbing or edema Neuro: Cranial nerves IV through XII are grossly intact without focal deficits; awake alert and oriented x3 Psych: Normal mood and affect Results Laboratory Results: 12/12/16 05:18 12/12/16 05:18 12/12/16 12/12/16 05:18 05:18 WBC 5.8 RBC 3.68 L Hgb 10.8 L Hct 32.1 L MCV 87 MCH 29.4 MCHC 33.7 RDW 14.5 H Plt Count 290 Seg Neutrophils % Not Reportable Lymphocytes % Not Reportable Monocytes % Not Reportable Eosinophils % Not Reportable Basophils % Not Reportable Absolute Neutrophils Not Reportable Absolute Lymphocytes Not Reportable Absolute Monocytes Not Reportable Absolute Eosinophils Not Reportable Absolute Basophils Not Reportable Sodium 138.1 Potassium 4.7 Chloride 103 Carbon Dioxide 25 Anion Gap 10 BUN 20 Creatinine 1.11 Est GFR ( Amer) > 60 Est GFR (Non-Af Amer) > 60 Glucose 136 H Calcium 9.5 Magnesium 2.4 H Impressions: Chest CT 12/09/16 00:00 IMPRESSION: COPD. Pulmonary fibrosis with superimposed infection or aspiration left lower lobe. Acute Abdomen Series 12/09/16 10:35 IMPRESSION: NO RADIOGRAPHIC EVIDENCE FOR ACUTE ABDOMINAL DISEASE. Minimal basilar opacities in the lungs. Chest X-Ray 12/10/16 06:00 IMPRESSION: Improved appearance in the left base with possible new airspace disease in the medial right base. Assessment & Plan - Diagnosis (1) Aspiration pneumonia Qualifiers: Aspiration pneumonia type: due to regurgitated food Laterality: bilateral Lung location: lower lobe of lung Qualified Code(s): J69.0 - Pneumonitis due to inhalation of food and vomit Is this a current diagnosis for this admission?: Yes Plan: Transition from Zosyn to levaquin. Aggressive pulmonary toileting Have discussed with his son and at length that the PEG tube does not reduce his risk for aspiration pneumonia or any recurrent aspirations. Suspect that patient had aspiration secondary to severe constipation, GERD, and large bolus feedings. Consult dietary for 6x daily feed recommendations. (2) COPD exacerbation Is this a current diagnosis for this admission?: Yes Plan: Decrease prednisone Continue scheduled nebulized treatments (3) Chemical pneumonitis Is this a current diagnosis for this admission?: Yes (4) Debility Is this a current diagnosis for this admission?: Yes Plan: Patient did well with PT. Out of bed to chair 3 times daily. Home with home health (5) Dehydration Is this a current diagnosis for this admission?: Yes Plan: stop IVF (6) Dysphagia Qualifiers: Dysphagia type: unspecified Qualified Code(s): R13.10 - Dysphagia, unspecified Is this a current diagnosis for this admission?: Yes Plan: Have discussed at great length with son and patient quality of life versus risk for aspiration. Patient reports he has never had aspiration pneumonia prior to having his PEG tube placed. We will ask that speech therapy evaluate this patient. In discussing with him, he reports a desire for quality of life versus quantity. They feel that they were not informed as to the ongoing risk for aspiration after PEG tube placement. (7) GERD (gastroesophageal reflux disease) Qualifiers: Esophagitis presence: esophagitis presence not specified Qualified Code(s) : K21.9 - Gastro-esophageal reflux disease without esophagitis Is this a current diagnosis for this admission?: Yes Plan: Continue PPI Elevate HOB > 30 degrees (8) Neurogenic bladder Is this a current diagnosis for this admission?: Yes Plan: Place patient on finasteride as an outpatient as he also has a BPH component making his cathing difficult Patient will need to follow with urology. Patient is not fully compliant with self cathing at home due to physical constraints. Patient apparently has a diagnosis of neurogenic bladder, but reports that this is been going on significantly worse since his diagnosis of prostate cancer. Plan to leave robins in place with a leg bag. (9) DVT prophylaxis Is this a current diagnosis for this admission?: Yes (10) Acute renal failure Qualifiers: Acute renal failure type: unspecified Qualified Code(s): N17.9 - Acute kidney failure, unspecified Is this a current diagnosis for this admission?: Yes Plan: likely 2/2 dehydration Improved (11) Acute and chronic respiratory failure Qualifiers: Respiratory failure complication: hypoxia Qualified Code(s): J96.21 - Acute and chronic respiratory failure with hypoxia Is this a current diagnosis for this admission?: Yes Plan: Patient is chronically on oxygen at home Weaned to maintain oxygen saturation greater than 93% (12) Acute on chronic diastolic heart failure Is this a current diagnosis for this admission?: Yes Plan: Echocardiogram reveals normal EF and grade 2/4 diastolic dysfunction. Patient abdominal distention also improved with lasix dose Place patient on lasix q48hrs Consider low dose mario/arb no betablocker 2/2 severe bronchus spastic disease. - Time Time Spent with patient: 35 or more minutes Medications reviewed and adjusted accordingly: Yes Anticipated discharge: Home with Homehealth Within: within 48 hours - Plan Summary Plan Summary: Total time spent with patient including patient education, physical examination , discussion with family, and formulation of plan was 65 minutes.
[2016-12-12] MEDS: Fluticasone/Vilanterol [Breo Ellipta 100-25 Mcg Inh IH SCH (21:08)
[2016-12-13] MEDS: HEPARIN SOD (PORCINE) 5,000 UNIT/ML 1 ML SYRINGE SUBCUT SCH ×3 (01:11→17:55)
[2016-12-13] MEDS: IPRATROPIUM/ALBUTEROL 0.5-2.5 MG/3 ML AMPUL NEB SCH ×4 (01:55→19:58)
[2016-12-13] MEDS: LANSOPRAZOLE 15 MG TAB.RAP.DR PO SCH ×2 (05:14→17:54)
[2016-12-13] MEDS: SERTRALINE HCL 50 MG TABLET PO SCH (10:41)
[2016-12-13] MEDS: GUAIFENESIN SYRP 200 MG/10 ML UDC PEG SCH ×4 (10:41→21:47)
[2016-12-13] MEDS: CETIRIZINE 5 MG TABLET PO SCH (10:41)
[2016-12-13] MEDS: GLYCOPYRROLATE 1 MG TABLET PO SCH ×2 (10:42→17:57)
[2016-12-13] MEDS: TIOTROPIUM BROMIDE DPI 5 CAP/KIT (18 MCG/CAP) IH SCH (10:43)
[2016-12-13] MEDS: LEVOFLOXACIN 500 MG TABLET PEG SCH (11:52)
--- NOTE | 2016-12-13 13:24 | PDOC PROGRESS REPORT ---
Subjective Progress Note for:: 12/13/16 Subjective:: Patient is sitting in the chair and he has just finished seeing speech and Occupational Therapy. He reports he is feeling quite well today. He ate two thirds of his breakfast without any difficulty or choking. Patient denies chest pain, shortness of breath, abdominal pain, nausea, vomiting , fevers, chills, diarrhea, headache, new onset weakness. He does report a sense of pressure like he does have to have a bowel movement, but reports he has not had one since 2 days ago Physical Exam Vital Signs: Temp Pulse Resp BP Pulse Ox 98.1 F 69 18 120/57 L 98 12/13/16 00:12 12/13/16 02:00 12/13/16 01:55 12/13/16 00:12 12/13/16 01:55 Intake & Output 12/12/16 12/13/16 12/14/16 06:59 06:59 06:59 Intake Total 1752 311 Output Total 2500 1050 Balance -748 -739 Weight 83.8 kg 82.8 kg Exam: General: awake, alert, oriented to self, situation, place, and answers questions appropriately, NAD HEENT: AT/NC, anisocoria, EOMI, oropharynx is moist, pink, no scleral icterus, no conjunctival injection Neck: No JVD, trachea midline Chest: Prolonged expiratory phase, CTAB CV: Regular rate and rhythm, normal S1 and S2, no murmur, rub, or gallop Abdomen: Soft, nontender to palpation, non-distended, active bowel sounds; no rebound, rigidity, or guarding Extremities: No cyanosis, clubbing or edema Neuro: anisocoria, cranial nerves IV through XII are grossly intact without focal deficits; awake alert and oriented x3 Psych: Normal mood and affect Results Laboratory Results: 12/12/16 05:18 12/12/16 05:18 Impressions: Chest CT 12/09/16 00:00 IMPRESSION: COPD. Pulmonary fibrosis with superimposed infection or aspiration left lower lobe. Acute Abdomen Series 12/09/16 10:35 IMPRESSION: NO RADIOGRAPHIC EVIDENCE FOR ACUTE ABDOMINAL DISEASE. Minimal basilar opacities in the lungs. Chest X-Ray 12/10/16 06:00 IMPRESSION: Improved appearance in the left base with possible new airspace disease in the medial right base. Assessment & Plan - Diagnosis (1) Aspiration pneumonia Qualifiers: Aspiration pneumonia type: due to regurgitated food Laterality: bilateral Lung location: lower lobe of lung Qualified Code(s): J69.0 - Pneumonitis due to inhalation of food and vomit Is this a current diagnosis for this admission?: Yes Plan: Doing well with transition to Levaquin. Aggressive pulmonary toileting Have discussed with his entire family at length that the PEG tube does not reduce his risk for aspiration pneumonia or any recurrent aspirations. Suspect that patient had aspiration secondary to severe constipation, GERD, and large bolus feedings. Consult dietary for plan for supplemental nutrition with his decreased oral intake. Possibly with the use of PEG feeding. (2) COPD exacerbation Is this a current diagnosis for this admission?: Yes Plan: tolerated decrease in prednisone. Plan to decrease prednisone again tomorrow. Continue scheduled nebulized treatments (3) Chemical pneumonitis Is this a current diagnosis for this admission?: Yes (4) Debility Is this a current diagnosis for this admission?: Yes Plan: Patient did well with PT. Out of bed to chair 3 times daily. Home with home health within the next 24 hours (5) Dehydration Is this a current diagnosis for this admission?: Yes (6) Dysphagia Qualifiers: Dysphagia type: unspecified Qualified Code(s): R13.10 - Dysphagia, unspecified Is this a current diagnosis for this admission?: Yes Plan: Patient was seen by speech therapy today. Plans for modified barium swallow tomorrow. They report he did well with pured and thin liquids. (7) GERD (gastroesophageal reflux disease) Qualifiers: Esophagitis presence: esophagitis presence not specified Qualified Code(s) : K21.9 - Gastro-esophageal reflux disease without esophagitis Is this a current diagnosis for this admission?: Yes Plan: Continue PPI Elevate HOB > 30 degrees (8) Neurogenic bladder Is this a current diagnosis for this admission?: Yes Plan: Place patient on finasteride as an outpatient as he also has a BPH component making his cathing difficult Patient will need to follow with urology. Patient is not fully compliant with self cathing at home due to physical constraints. Patient apparently has a diagnosis of neurogenic bladder, but reports that this is been going on significantly worse since his diagnosis of prostate cancer. Plan to leave robins in place with a leg bag. Family understands the patient is at increased risk for infection with Robins in place, but except that in light of his inability to comply with regular catheterizations and the difficulty they have been having. (9) Acute renal failure Qualifiers: Acute renal failure type: unspecified Qualified Code(s): N17.9 - Acute kidney failure, unspecified Is this a current diagnosis for this admission?: Yes Plan: likely 2/2 dehydration Improved (10) Acute and chronic respiratory failure Qualifiers: Respiratory failure complication: hypoxia Qualified Code(s): J96.21 - Acute and chronic respiratory failure with hypoxia Is this a current diagnosis for this admission?: Yes Plan: Patient is chronically on oxygen at home Weaned to maintain oxygen saturation greater than 93% (11) Acute on chronic diastolic heart failure Is this a current diagnosis for this admission?: Yes Plan: Echocardiogram reveals normal EF and grade 2/4 diastolic dysfunction. Patient abdominal distention also improved with lasix dose Place patient on lasix q48hrs Consider low dose mario/arb no betablocker 2/2 severe bronchus spastic disease. (12) DVT prophylaxis Is this a current diagnosis for this admission?: Yes Plan: heparin and scd - Time Time Spent with patient: 25-34 minutes Medications reviewed and adjusted accordingly: Yes Anticipated discharge: Home Within: within 24 hours - Inpatient Certification Based on my medical assessment, after consideration of the patient's comorbidities, presenting symptoms, or acuity I expect that the services needed warrant INPATIENT care.: Yes I certify that my determination is in accordance with my understanding of Medicare's requirements for reasonable and necessary INPATIENT services [42 CFR 412.3e].: Yes Medical Necessity: Need Close Monitoring Due to Risk of Patient Decompensation Post Hospital Care: D/C Manager Statistical Documentation
[2016-12-13] MEDS ORDERED: FUROSEMIDE INJ/PF 20 MG/2 ML SDV IV ONE (14:00)
[2016-12-13] MEDS: PREDNISONE 20 MG TABLET PO SCH (14:52)
[2016-12-13] MEDS: Fluticasone/Vilanterol [Breo Ellipta 100-25 Mcg Inh IH SCH (21:47)
[2016-12-14] MEDS: IPRATROPIUM/ALBUTEROL 0.5-2.5 MG/3 ML AMPUL NEB SCH ×3 (02:34→13:43)
[2016-12-14] MEDS: HEPARIN SOD (PORCINE) 5,000 UNIT/ML 1 ML SYRINGE SUBCUT SCH ×2 (03:09→10:40)
[2016-12-14] MEDS: LANSOPRAZOLE 15 MG TAB.RAP.DR PO SCH (06:01)
[2016-12-14 07:35] LABS: ABSOLUTE LYMPHOCYTES (AUTO) 0.5 10^3/uL (0.5-4.7); ABSOLUTE MONOCYTES (AUTO) 0.5 10^3/uL (0.1-1.4); ABSOLUTE NEUT (AUTO) 3.4 10^3/uL (1.7-8.2); BASOPHILS % (AUTO) 0.1 % (0-2); EOSINOPHILS % (AUTO) 0.1 % (0-6); HEMOGLOBIN 11.6 g/dL (13.5-17.0); HGB HCT DIFFERENCE -0.2; LYMPHOCYTES % (AUTO) 10.6 % (13-45); MEAN CORPUSCULAR HEMOGLOBIN 29.1 pg (27.0-33.4); MEAN CORPUSCULAR HGB CONC 33.3 g/dL (32.0-36.0); MEAN CORPUSCULAR VOLUME 88 fl (80-97); MONOCYTES % (AUTO) 12.2 % (3-13); RED BLOOD COUNT 3.99 10^6/uL (4.35-5.55); RED CELL DISTRIBUTION WIDTH 14.5 % (11.5-14.0); WHITE BLOOD COUNT 4.4 10^3/uL (4.0-10.5)
[2016-12-14 07:52] LABS: ANION GAP 12 (5-19); BLOOD UREA NITROGEN 25 mg/dL (7-20); CALCIUM 10.3 mg/dL (8.4-10.2); CARBON DIOXIDE 28 mmol/L (22-30); CHLORIDE 100 mmol/L (98-107); CREATININE RESULT 1.22 mg/dL (0.52-1.25); GLUCOSE 92 mg/dL (75-110); MAGNESIUM 2.2 mg/dL (1.6-2.3); POTASSIUM 4.3 mmol/L (3.6-5.0)
[2016-12-14] MEDS: CETIRIZINE 5 MG TABLET PO SCH (10:37)
[2016-12-14] MEDS: GLYCOPYRROLATE 1 MG TABLET PO SCH (10:38)
[2016-12-14] MEDS: SERTRALINE HCL 50 MG TABLET PO SCH (10:38)
[2016-12-14] MEDS: TIOTROPIUM BROMIDE DPI 5 CAP/KIT (18 MCG/CAP) IH SCH (10:38)
[2016-12-14] MEDS: GUAIFENESIN SYRP 200 MG/10 ML UDC PEG SCH ×2 (10:38→14:43)
--- NOTE | 2016-12-14 10:57 | ST Inp Modified Barium Swallow ---
Medical Diagnosis - Medical Diagnoses Medical Diagnosis Description & ICD-10 Code(s): pneumonia, dysphagia R13.10 Inpatient MBS - General Date: 12/14/16 - History History Obtained From: Patient, Spouse, Other - EMR -: Medical - Patient admitted to the hospital due to pneumonia secondary to aspirating reflux from PEG feeds. MBSS ordered to determine safety of PO diet. Medications: Medications Reviewed Allergies: No known allergies - Subjective Current Nutritional Means: PEG - supplimental, PO Current Symptoms: Hx of asp. pneumonia Pain: Patient reports, 0/5 - Objective Assessment: Upright, Left Lateral - Food Trials Food Trials Used: Thin liquids, Pureed, Soft solids, Regular The Patient: fed by ST, via cup, via spoon - Assessment Labial Function: Within Normal Limits Lingual Function: Within Normal Limits Mandibular Function: Within Normal Limits Dentition: Edentulous Velo-Pharyngeal Function: Unremarkable Laryngeal Function: Volitional Cough, Volitional Swallow, Weak Cough - Pharyngeal Stage Initiation of Pharyngeal Stage: Delayed Reflex Delay Time (seconds): 5 Reduced Velo-Pharyngeal Closure: no Reduced Pressure Generation: Yes Pre-Swallowing Pooling in Valleculae: Significant Pre-Swallowing Pooling in Pyriforms: Mild Reduced Thyro-Hyiod Approximation: Yes Reduced Epiglottic Excursion: Yes Multiple Swallows With: Cleared w/ Liquid Assist Post Swallow Residuals in Valleculae: Moderate - Increased residue as texture thickness increased. Cleared with additional liquid wash. Post Swallow Residuals in Pyriforms: None Pahryngeal Stage Comments: Delayed swallow reflex noted, which resulted in significant pre-pooling of material from all texture trials in valleculae. 3-4 additional swallows required to clear residue, liquid wash helped clear residue faster. Pooling and residue places the patient at higher risk of aspiration, though none seen this study. - Impression/Summary Laryngeal Penetration: No Tracheal Aspiration: no Effective Compensatory Strategies: chin tuck - Reduced amount of residue Ineffective Compensatory Strategies: throat clear & reswallow Patient Presents With: Pharyngeal stage dysph., Mild-Moderate Risk of Aspiration: Moderate Risk of Nutritional Compromise: WNL - PEG in place Risk Due To: Aspiration risk due to pooling and residue. No nutritional risk seen due to PEG tube being present. - Recommendations Solid Diet Recommendations: Pureed Liquid Diet Recommendations: Thin Strict Aspitarion Precautions: Yes Dysphagia Therapy with ELDER ASSISTANT: Yes, Outpatient, Home Health Recommended Techniques: Fully Upright During Meal, Small Bites and Sips, Alternate Bites/Sips, Chin Tuck to Swallow Other Recommendations: Discussed diet recommendations, treatment recommendations , and swallowing strategies with patient, , and daughter. Written information given as well. - Time Total Time: 30 Total Timed Minutes: 30
[2016-12-14] MEDS: LEVOFLOXACIN 500 MG TABLET PEG SCH (12:17)
[2016-12-14] MEDS: PREDNISONE 20 MG TABLET PO SCH (14:43)
--- NOTE | 2016-12-14 15:25 | PDOC DISCHARGE SUMMARY ---
General - Admit/Disc Date/PCP Admission Date/Primary Care Provider: 12/09/16 12:39 Discharge Date: 12/14/16 - Discharge Diagnosis (1) Aspiration pneumonia Is this a current diagnosis for this admission?: Yes (2) COPD exacerbation Is this a current diagnosis for this admission?: Yes (3) Chemical pneumonitis Is this a current diagnosis for this admission?: Yes (4) Debility Is this a current diagnosis for this admission?: Yes (5) Dehydration Is this a current diagnosis for this admission?: Yes (6) Dysphagia Is this a current diagnosis for this admission?: Yes (7) GERD (gastroesophageal reflux disease) Is this a current diagnosis for this admission?: Yes (8) Neurogenic bladder Is this a current diagnosis for this admission?: Yes (9) Acute renal failure Is this a current diagnosis for this admission?: Yes (10) Acute and chronic respiratory failure Is this a current diagnosis for this admission?: Yes (11) Acute on chronic diastolic heart failure Is this a current diagnosis for this admission?: Yes (12) DVT prophylaxis Is this a current diagnosis for this admission?: Yes - Additional Information Resuscitation Status: Full Code Discharge Diet: Regular, Other (Comments) Discharge Activity: Activity As Tolerated, Balance Activity w/Rest, Slowly Increase Activity, Supervised Activity Home Medications: Albuterol Sulfate [Ventolin 0.083% Neb 2.5 mg/3 mL Ampul] 1 vial NEB RTQ12 12/09 Albuterol Sulfate [Ventolin Hfa] 2 puff IH ASDIR PRN 12/09/16 Fluticasone/Vilanterol [Breo Ellipta 100-25 Mcg INH] 1 puff IH QHS 12/09/16 Glycopyrrolate [Robinul Forte 1 mg Tablet] 1 mg PO BID 12/09/16 Guaifenesin [Mucinex] 600 mg PO QHS 12/09/16 Levocetirizine Dihydrochloride [Xyzal] 5 mg PO DAILY 12/09/16 Pantoprazole Sodium [Protonix] 40 mg PO DAILY 12/09/16 Sertraline HCl [Zoloft 50 mg Tablet] 50 mg PO DAILY 12/09/16 Tiotropium Condon [Spiriva Handihaler 5 Cap/Kit (18 Mcg/Cap)] 1 cap IH DAILY Bisacodyl [Dulcolax 10 mg Supp.rect] [address] DAILYP PRN #10 supp.rect 12/14/16 Furosemide [Lasix 20 mg Tablet] 20 mg PO DAILY #30 tablet 12/14/16 Ipratropium/Albuterol Sulfate [Duoneb 3 ml Ampul] 3 ml NEB RTQ6 #1 pkg 12/14/16 Levofloxacin [Levaquin 500 mg Tablet] 500 mg PEG DAILY@1200 #4 tablet 12/14/16 Prednisone [Deltasone 20 mg Tablet] 40 mg PO DAILY@1400 #20 tablet 12/14/16 History of Present Illness History of Present Illness: RHIANNA PRATER is a 86 year old male presents with shortness of breath. Pt states that he receives PEG tube feeds and last night noted that he was belching and coughing. Pt states that he could taste the liquid supplement last night. Pt states that his last feed was at 8 pm and he went to bed at 11pm. Pt states that he sleeps with one pillow at night. Pt states that he woke up at 4-430 am short of breath. Pt states that he has been having hard time breathing. states that he had his PEG tube placed last Saturday. ER states that pt was sating in the Low 80s on 4 liters. The ER doctor gave breathing treatment and rocephin. At time of my encounter to was on 2 liters nasal canula. Hospital Course Hospital Course: Patient was found on both chest CT and chest x-ray to have aspiration pneumonia of the left lower lobe and pulmonary fibrosis. Patient was initially started on Zosyn and this was continued along with prednisone. Patient was then transitioned to Levaquin in addition to prednisone. Patient was found to be quite profoundly constipated and he had improvement of his ability to tolerate feeding with relief of his constipation. Patient also was noted to never have been admitted prior for aspiration pneumonia. I discussed this with his family at length. Modified barium swallow was repeated as well as speech therapy evaluation. And while patient did have some pooling in the vallecula, he did not aspirate with pured and thins. Diet was resumed. Due to patient's inability to maintain adequate caloric intake, ensure alive was added 3 times daily. Patient family was given information on aspiration including precautions. Due to patient's initial abdominal distention, a 4-year-old echocardiogram was performed which revealed mild diastolic dysfunction. Patient was improved on a small amount of Lasix. Patient also normally caths for neurogenic bladder, but has been having difficulty due to BPH symptoms. Shi catheter was placed. Family was advised of risk of infection. It was felt that this would stay in place until he is able to follow-up with urology. Patient is currently much improved and also we have had discussions with his family and they would prefer for him to be a DNR and to follow at home with home health and palliative care referral. Patient has been advised to eat a pureed and thin diet with alternating sips and bites and chin down. Home health speech was established prior to dc. Physical Exam Vital Signs: Temp Pulse Resp BP Pulse Ox 97.4 F 74 16 121/59 L 93 12/14/16 13:36 12/14/16 13:43 12/14/16 13:43 12/14/16 11:12 12/14/16 13:43 Intake & Output 12/13/16 12/14/16 12/15/16 06:59 06:59 06:59 Intake Total 311 1419 Output Total 1050 1825 Balance -739 -406 Weight 82.8 kg 82.8 kg Exam: General: awake, alert, oriented to self, situation, place, and answers questions appropriately, NAD HEENT: AT/NC, anisocoria, EOMI, oropharynx is moist, pink, no scleral icterus, no conjunctival injection Neck: No JVD, trachea midline Chest: Prolonged expiratory phase, CTAB CV: Regular rate and rhythm, normal S1 and S2, no murmur, rub, or gallop Abdomen: Soft, nontender to palpation, mildly distended, hypoactive bowel sounds ; no rebound, rigidity, or guarding Extremities: No cyanosis, clubbing or edema Neuro: anisocoria, cranial nerves IV through XII are grossly intact without focal deficits; awake alert and oriented x3 Psych: Normal mood and affect Results Laboratory Results: 12/14/16 07:02 12/14/16 07:02 12/14/16 12/14/16 07:02 07:02 WBC 4.4 RBC 3.99 L Hgb 11.6 L Hct 35.0 L MCV 88 MCH 29.1 MCHC 33.3 RDW 14.5 H Plt Count 359 Seg Neutrophils % 77.0 Lymphocytes % 10.6 L Monocytes % 12.2 Eosinophils % 0.1 Basophils % 0.1 Absolute Neutrophils 3.4 Absolute Lymphocytes 0.5 Absolute Monocytes 0.5 Absolute Eosinophils 0.0 Absolute Basophils 0.0 Sodium 140.0 Potassium 4.3 Chloride 100 Carbon Dioxide 28 Anion Gap 12 BUN 25 H Creatinine 1.22 Est GFR ( Amer) > 60 Est GFR (Non-Af Amer) 57 L Glucose 92 Calcium 10.3 H Magnesium 2.2 Impressions: Chest CT 12/09/16 00:00 IMPRESSION: COPD. Pulmonary fibrosis with superimposed infection or aspiration left lower lobe. Acute Abdomen Series 12/09/16 10:35 IMPRESSION: NO RADIOGRAPHIC EVIDENCE FOR ACUTE ABDOMINAL DISEASE. Minimal basilar opacities in the lungs. Chest X-Ray 12/10/16 06:00 IMPRESSION: Improved appearance in the left base with possible new airspace disease in the medial right base. Qualifiers PATEINT BEING DISCHARGED WITH ANY OF THE FOLLOWING DIAGNOSIS?: Heart Failure HF Pt being discharged on ACEI for LVEF less than 40%?: No Reason(s) for not prescribing ACEI:: Not indicated - ef>40 HF Pt being discharged on ARBS for LVEF less than 40%?: No Reason(s) for not prescribing ARBS:: Not indicated - ef>40 HF Pt with Afib discharged with Warfarin?: No Reason(s) for not prescribing Warfarin:: Not indicated - no fib HF Pt discharged on evidence-based Beta Richard:: No Reason(s) for not prescribing evidence-based Beta Richard:: Medical Contraindication - bronchospasm Plan Time Spent: Greater than 30 Minutes
[2016-12-14 15:29] VITALS: BP 129/66
--- NOTE | 2016-12-15 00:19 | Palliative Consultation Report ---
Consultation From:: [facility] HPI: Palliative care Consult Visit 12/14/16 2:35- 3;10PM Appreciate palliative care referral for this 86 year old man who has been admitted with aspiration pneumonia. He is doing much better now and hopes to go home soon. Mr. Carrillo has multiple medical problems including dysphagia from unknown etiology. He and his said they were told he could not swallow safely so last week a PEG tube was surgically placed. He tolerated the tube feedings well but apparently aspirated anyway and was brought to the hospital with respiratory distress. He also suffers with COPD and has had prostate cancer with neurogenic bladder which has required self catheteriztion. In recent weeks he has had increasing difficulty passing the catheters and the doctors had problems passing catheters here at hospital. When robins was inserted, it was decided that it should stay in place for a while until urology can decide best course of treatment. I had a long discussion with patient and his about the robins actually preventing infection by keeping the bladder empty and preventing need for difficult self cath many times each day. He will have home health to help with catheter care when he goes home. He is no longer receiving treatment for the prostate cancer, ut PSA levels have risen some according to his . We discussed the issues he has had with his dysphagia and he tells me the speech therapist who did his swallow study today also gave him good instructions regarding swallowing safely. He was able to repeat these instructions back to me and demonstrate the tuck and swallow method and show me why he needs to focus on eating and not get distracted. He la nena cough but does still have some audible congestion. Mr. Carrillo denied having any pain or distress. His agreed that he has shown no symptoms of pain but that he has been more talkative and is not sleeping until very late at night. We discussed side effects of steroids. Mr. Carrillo follows with his PCP in [place] although he lives closer to [place]. I told them about palliative care services at home and gave them information. Mrs. Carrillo stated that she will talk to his PCP to get referral as she thinks that would help them not have to go to [place] as often and perhpas prevent some more serious problems. Onset: Just prior to arrival Onset/Duration: Sudden Quality of Pain: No pain Severity: None Past Medical History(Consults) - General Home Medications: Albuterol Sulfate [Ventolin 0.083% Neb 2.5 mg/3 mL Ampul] 1 vial NEB RTQ12 12/09 Albuterol Sulfate [Ventolin Hfa] 2 puff IH ASDIR PRN 12/09/16 Fluticasone/Vilanterol [Breo Ellipta 100-25 Mcg INH] 1 puff IH QHS 12/09/16 Glycopyrrolate [Robinul Forte 1 mg Tablet] 1 mg PO BID 12/09/16 Guaifenesin [Mucinex] 600 mg PO QHS 12/09/16 Levocetirizine Dihydrochloride [Xyzal] 5 mg PO DAILY 12/09/16 Pantoprazole Sodium [Protonix] 40 mg PO DAILY 12/09/16 Sertraline HCl [Zoloft 50 mg Tablet] 50 mg PO DAILY 12/09/16 Tiotropium Barney [Spiriva Handihaler 5 Cap/Kit (18 Mcg/Cap)] 1 cap IH DAILY Bisacodyl [Dulcolax 10 mg Supp.rect] 10 mg NE DAILYP PRN #10 supp.rect 12/14/16 Furosemide [Lasix 20 mg Tablet] 20 mg PO DAILY #30 tablet 12/14/16 Ipratropium/Albuterol Sulfate [Duoneb 3 ml Ampul] 3 ml NEB RTQ6 #1 pkg 12/14/16 Levofloxacin [Levaquin 500 mg Tablet] 500 mg PEG DAILY@1200 #4 tablet 12/14/16 Prednisone [Deltasone 20 mg Tablet] 40 mg PO DAILY@1400 #20 tablet 12/14/16 Allergies/Adverse Reactions: No Known Allergies Allergy (Unverified 12/09/16 11:39) - Social History Lives with: Family, Spouse/Significant other Family History: Reviewed & Not Pertinent Parental Family History Reviewed: No Children Family History Reviewed: No Sibling(s) Family History Reviewed.: No Smoking Status: Unknown if Ever Smoked Cigarettes Packs Per Day: 1.5 Number of Years Smokin Last Time Smoked: 3 years ago Frequency of Alcohol Use: None Hx Recreational Drug Use: No Drugs: None Hx Prescription Drug Abuse: No Pulmonary Medical History: Reports: Hx COPD, Hx Pneumonia EENT Medical History: Reports: Other - dysphagia Renal/ Medical History: Reports: Other - prostate cancer, neuogenic bladder Malignancy Medical History: Reports Hx Prostate Cancer GI Medical History: Reports: Other GI History Note: PE tube inserted last week due to dyshagia Psychiatric Medical History: Reports: Hx Anxiety, Hx Depression - Surgical History Past Surgical History: Reports: Hx Abdominal Surgery - PEG tube placement - 12/07, Hx Cholecystectomy, Other - PEG Tube placement. Review of systems Constitutional: Recent illness EENT: Difficulty swallowing Cardiovascular: Dyspnea Respiratory: Cough, Short of breath - New PEG tube Geniturinary: Retention Male Genitourinary: Other - Urinary retention, self catheterization with much difficulty Neurological/Psychological: No symptoms reported Ojective:Exam Vital Signs: Temp Pulse Resp BP Pulse Ox 97.8 F 78 20 129/66 H 92 12/14/16 15:28 12/14/16 15:28 12/14/16 15:28 12/14/16 15:28 12/14/16 15:28 Intake & Output 12/13/16 12/14/16 12/15/16 06:59 06:59 06:59 Intake Total 311 1419 Output Total 1050 1825 Balance -739 -406 Weight 82.8 kg 82.8 kg - General General Appearance: Appears well, Alert In distress: None Note:: Alert, oriented. talkative. Wants to go home Happy to be allowed to eat. Denies pain - Respiratory Breath sounds: Productive cough - Cardiovascular Pulses: Normal: Radial - Genitourinary Genitourinary Note: Robins in place draining clear yellow urine - Neurological Cognition: Normal Orientation: AAOx4 Speech: Normal Cranial nerves: Normal - Psychological Associated symptoms: Increased appetite Objective-Diagnostic Laboratory: 12/14/16 07:02 12/14/16 07:02 12/14/16 12/14/16 07:02 07:02 WBC 4.4 RBC 3.99 L Hgb 11.6 L Hct 35.0 L MCV 88 MCH 29.1 MCHC 33.3 RDW 14.5 H Plt Count 359 Seg Neutrophils % 77.0 Lymphocytes % 10.6 L Monocytes % 12.2 Eosinophils % 0.1 Basophils % 0.1 Absolute Neutrophils 3.4 Absolute Lymphocytes 0.5 Absolute Monocytes 0.5 Absolute Eosinophils 0.0 Absolute Basophils 0.0 Sodium 140.0 Potassium 4.3 Chloride 100 Carbon Dioxide 28 Anion Gap 12 BUN 25 H Creatinine 1.22 Est GFR ( Amer) > 60 Est GFR (Non-Af Amer) 57 L Glucose 92 Calcium 10.3 H Magnesium 2.2 Plan and Recommendation Plan and Recommendation: Talked with patient about safe swallowing and food consistency. Also discussed robins and pros of having the catheter indwelling instead of intermittent, discussed prostate cancer and treatment, Discussed pneumonia and medications as well as resultant weakness. I explained home visits for Palliative Care. Patient has already decided on DNR and is supportive of this She is NOK and he wants her to be HCPOA. also has had cancer and the couple may need more conversation regarding HPOA in case something happens to either of them. I explained that PCP can refer them to PC for home visits and gave them my card and info. Patient denies pain or other symptoms. No need for other meds. Hoping to go home soon. - Time Spent with Patient Time spent with patient: 30 to 40 Minutes Time: 35 min with patient and , 10 min chart review etc
[2016-12-15] MEDS ORDERED: FUROSEMIDE 20 MG TABLET PO SCH (10:00)
--- NOTE | 2016-12-18 18:26 | RADIOLOGY REPORT (SQ) ---
EXAM DESCRIPTION: WAYLON SWALLOW COMPLETED DATE/TIME: 12/14/2016 8:22 am REASON FOR STUDY: suspected aspiration COMPARISON: None. TECHNIQUE: Videofluoroscopic swallowing examination was performed in conjunction with speech patholo gy. Videofluoroscopic imaging was obtained and reviewed and these are the findings: RADIATION DOSE: 3 minutes 8 seconds of fluoroscopy was used. 1 images saved to PACS. LIMITATIONS: None FINDINGS: The patient was brought into the fluoro room and placed upright on a modified barium swall ow chair. The patient was then given multiple consistencies mixed with barium to swallow under live fluoroscopic video guidance. According to the Speech Pathologist there was no penetration or aspirat ion. Patient demonstrates a weak in uncoordinated swallow. Mild cricopharyngeal hypertrophy. IMPRESSION: NO EVIDENCE OF PENETRATION OR ASPIRATION.PLEASE SEE SPEECH PATHOLOGIST REPORT FOR OTHER FINDINGS AND RECOMMENDATIONS. COMMENT: Quality ID [id number]: Final reports for procedures using fluoroscopy that document radiation exp osure indices, or exposure time and number of fluorographic images (if radiation exposure indices are not available) TECHNICAL DOCUMENTATION: JOB ID: [id number] [employer]- All Rights Reserved
== END 2016-12-14 16:48 | disposition home health service (06) | DRG 177 ==
LOC: ER 10:19 → EH 12:21 → UNDOADMIN 12:21 → EH 12:39 → 3S 13:39 → EH 13:39
PROC: 3E0F73Z Introduction of Anti-inflammatory into Respiratory Tract, Via Natural or Artificial Opening (ICD-10-PCS; principal; 2016-12-09)
DX: J69.0 Pneumonitis due to inhalation of food and vomit (principal); I50.33 Acute on chronic diastolic (congestive) heart failure; J96.21 Acute and chronic respiratory failure with hypoxia; J44.1 Chronic obstructive pulmonary disease with (acute) exacerbation; N17.9 Acute kidney failure, unspecified; E86.0 Dehydration; R13.10 Dysphagia, unspecified; Z51.5 Encounter for palliative care; K21.9 Gastro-esophageal reflux disease without esophagitis; N31.9 Neuromuscular dysfunction of bladder, unspecified; J84.10 Pulmonary fibrosis, unspecified; J68.0 Bronchitis and pneumonitis due to chemicals, gases, fumes and vapors; K59.00 Constipation, unspecified; I95.9 Hypotension, unspecified; Z93.1 Gastrostomy status; Z85.46 Personal history of malignant neoplasm of prostate; Z79.899 Other long term (current) drug therapy; Z90.49 Acquired absence of other specified parts of digestive tract; Z87.891 Personal history of nicotine dependence; Z99.81 Dependence on supplemental oxygen
CPT/HCPCS: 36415; 71010; 71250; 74022; 74230; 80048; 80053; 81001; 82803; 82962; 83605; 83735; 85025; 85610; 87040; 87086; 93005; 93010; 93306; 94640; 99285; G8978-GP; G8979-GP; G8987-GO; G8988-GO; G8996-GN; G8997-GN; G8998-GN; J0696; J1644; J1940; J2543; J3490; J7030; J7512; J7620